=== PATIENT | female | born 1940 | race Caucasian/White ===

== ENCOUNTER 2024-08-20 11:59 | Day surgery (SDC) | payer OTHER ==
[~2024-08-20] VITALS: Ht 167.6 cm; Wt 78.9 kg
[~2024-08-20 11:59] MED LIST: ALBU90OI INH; ASPI81EC PO; BUSP5 PO; CHOL10002 PO; CLOP75 PO; DICMIS75EC PO; DOCU100 PO; Daily Multiple1 EACH PO; HYDACE10B PO; ISOD40ER PO; Isosorbide Mono60 MG PO; LISI5 PO; Lidocaine 1%-Epineph 1:100000 20 ML MDV ONE; METF500 PO; METO50 PO; NAPR500 PO; NITR.4SL SL; NS 500 ML IV ONE; OMEP20ER PO; PRAV20 PO; Prilosec Otc20 MG PO; UBID100 PO; VALS80 PO
[2024-08-20] MEDS ORDERED: CeFAZolin Sodium 2,000 MG VIAL ONE (12:06)
[2024-08-20] MEDS ORDERED: ATENOLOL25 MG PO (12:18)
[2024-08-20] MEDS ORDERED: ALENDRONATE SOD35 M6 PO (12:29)
[2024-08-20] MEDS ORDERED: PROM12.5S PR (12:29)
[2024-08-20] MEDS ORDERED: HYDROCODONE-AC1 EAC7 PO (12:29)
[2024-08-20] MEDS ORDERED: NS 500 ML IV ONE (12:40)
--- NOTE | 2024-08-20 12:59 | NUR ---
08/20/24 1259 Ashley Taylor TIME OUT PERFORMED AT BEDSIDE WITH DR GOODMAN AT 1237 IMMEDIATELY PRIOR TO INJECTION OF 6ML OF 10ML SOLUTION CONSISTING OF 9ML 1% LIDOCAINE W/EPI [id number] AND 1ML 8.4% SODIUM BICARBONATE. PT TOLERATED INJECTION WELL.
[2024-08-20 14:48] VITALS: BP 126/72
== END 2024-08-20 14:35 | disposition home or self-care (01) ==
LOC: ORSCSDS 11:59
PROVIDERS: Orthopaedic Surgery
PROC: 0LB80ZZ Excision of Left Hand Tendon, Open Approach (ICD-10-PCS; principal; 2024-08-20 13:30)
DX: R22.32 Localized swelling, mass and lump, left upper limb (principal); M67.40 Ganglion, unspecified site; I10 Essential (primary) hypertension; E78.5 Hyperlipidemia, unspecified; E11.9 Type 2 diabetes mellitus without complications; R06.02 Shortness of breath; I25.2 Old myocardial infarction; Z87.891 Personal history of nicotine dependence; Z79.82 Long term (current) use of aspirin; Z79.899 Other long term (current) drug therapy
CPT/HCPCS: 82947; 88304; J0690; J7040

== ENCOUNTER → 2025-06-27 | Outpatient (CLI) | payer OTHER ==
[~2025-06-27] MED LIST changes: +ALENDRONATE SOD35 M6 PO; +ATENOLOL25 MG PO; +HYDROCODONE-AC1 EAC7 PO; -Lidocaine 1%-Epineph 1:100000 20 ML MDV ONE; -NS 500 ML IV ONE; +PROM12.5S PR
[2025-06-27 19:48] LABS: BASOPHILS ABSOLUTE AUTO 0.11 K/mm3 (0.00-0.23); BASOPHILS PERCENT AUTO 1 % (0-2); EOSINOPHILS ABSOLUTE AUTO 0.15 K/mm3 (0.00-0.68); EOSINOPHILS PERCENT AUTO 1 % (0-6); Hematocrit 36.0 % (33.0-51.0); Hemoglobin 11.1 g/dL (11.5-16.0); IMMATURE GRAN ABSOLUTE AUTO 0.08 K/mm3 (0.00-0.10); IMMATURE GRAN PERCENT AUTO 1 % (0-1); LYMPHOCYTES ABSOLUTE AUTO 0.77 K/mm3 (0.84-5.20); LYMPHOCYTES PERCENT AUTO 5 % (21-46); MONOCYTES ABSOLUTE AUTO 0.98 K/mm3 (0.16-1.47); MONOCYTES PERCENT AUTO 6 % (4-13); Mean Corpuscular HGB Conc 30.8 g/dL (31.5-36.5); Mean Corpuscular Volume 84 fL (80-100); NEUTROPHILS ABSOLUTE AUTO 14.01 K/mm3 (1.96-9.15); NEUTROPHILS PERCENT AUTO 87 % (41-73); NRBC ABSOLUTE 0.00 K/mm3 (0.00-0.02); NRBC Auto 0.0 /100 WBC (0.0-0.2); Platelet Count 371 K/mm3 (150-400); RDW Coefficient Variation 14.6 % (11.7-14.2); RDW Standard Deviation 44.1 fL (35.1-46.3)
[2025-06-27 20:42] LABS: Alanine Aminotransfer (ALT/SGP 31.0 U/L (12-78); Albumin, Blood 3.4 g/dL (3.4-5.0); Albumin/Globulin Ratio 0.8 (0.8-1.8); Anion Gap 8.0 mmol/L (3-11); Aspartate Aminotrans (AST/SGOT 31.0 U/L (12-37); Bilirubin, Total 0.6 mg/dL (0.1-1.0); Blood Urea Nitrogen 21.0 mg/dL (8-24); CO2, Blood 29.0 mmol/L (21-32); Calcium, Blood 10.2 mg/dL (8.5-10.1); Chloride, Blood 99.0 mmol/L (98-108); Creatinine, Blood 1.02 mg/dL (0.40-1.00); Globulin, Blood 4.1 g/dL (2.2-4.0); Glucose, Blood 108.0 mg/dL (70-99); Potassium, Blood 3.9 mmol/L (3.5-5.5); Sodium, Blood 132.0 mmol/L (136-145); Thyroid Stimulating Hormone 4.45 uIU/mL (0.360-4.800); Total Protein, Blood 7.5 g/dL (6.4-8.2)
== END ==
LOC: LAB 19:31 → LAB SHORT 19:31
PROVIDERS: Family Medicine
DX: E11.40 Type 2 diabetes mellitus with diabetic neuropathy, unspecified (principal); E78.5 Hyperlipidemia, unspecified
CPT/HCPCS: 80053; 84443; 85025

== ENCOUNTER → 2025-07-03 | Outpatient (CLI) | payer OTHER ==
[2025-07-03 15:04] LABS: Hematocrit 35.5 % (33.0-51.0); Hemoglobin 11.0 g/dL (11.5-16.0); Mean Corpuscular HGB Conc 31.0 g/dL (31.5-36.5); Mean Corpuscular Volume 85 fL (80-100); NRBC ABSOLUTE 0.00 K/mm3 (0.00-0.02); NRBC Auto 0.0 /100 WBC (0.0-0.2); Platelet Count 440 K/mm3 (150-400); RDW Coefficient Variation 14.8 % (11.7-14.2); RDW Standard Deviation 45.6 fL (35.1-46.3)
[2025-07-03 15:25] LABS: BASOPHILS ABSOLUTE MAN 0.00 K/mm3 (0.00-0.23); BASOPHILS PERCENT MAN 0 % (0-2); EOSINOPHILS ABSOLUTE MAN 0.00 K/mm3 (0.00-0.68); EOSINOPHILS PERCENT MAN 0 % (0-6); LYMPHOCYTES ABSOLUTE MAN 0.63 K/mm3 (0.84-5.20); LYMPHOCYTES PERCENT MAN 3 % (21-46); MONOCYTES ABSOLUTE MAN 0.63 K/mm3 (0.16-1.47); MONOCYTES PERCENT MAN 3 % (4-13); MYELOCYTE ABSOLUTE MAN 0.21 K/mm3 (0.00-0.00); MYELOCYTE PERCENT MAN 1 % (0-0); NEUTROPHILS ABSOLUTE MAN 19.64 K/mm3 (1.96-9.15); SEG NEUTROPHILS PERCENT MAN 93 % (41-73)
[2025-07-03 15:42] LABS: Alanine Aminotransfer (ALT/SGP 27.0 U/L (12-78); Albumin, Blood 3.2 g/dL (3.4-5.0); Albumin/Globulin Ratio 0.8 (0.8-1.8); Anion Gap 8.0 mmol/L (3-11); Aspartate Aminotrans (AST/SGOT 21.0 U/L (12-37); Bilirubin, Total 0.4 mg/dL (0.1-1.0); Blood Urea Nitrogen 31.0 mg/dL (8-24); C-REACTIVE PROTEIN, EXT RANGE 5.74 mg/dL (0.000-0.300); CO2, Blood 28.0 mmol/L (21-32); Calcium, Blood 9.5 mg/dL (8.5-10.1); Chloride, Blood 104.0 mmol/L (98-108); Creatinine, Blood 1.08 mg/dL (0.40-1.00); Globulin, Blood 4.1 g/dL (2.2-4.0); Glucose, Blood 125.0 mg/dL (70-99); Potassium, Blood 4.2 mmol/L (3.5-5.5); Sodium, Blood 136.0 mmol/L (136-145); Total Protein, Blood 7.3 g/dL (6.4-8.2)
== END ==
LOC: LAB SHORT 13:08 → LAB 13:08
PROVIDERS: Family Medicine
DX: D72.829 Elevated white blood cell count, unspecified (principal)
CPT/HCPCS: 80053; 85007; 85027; 85651; 86140; 87086